=== PATIENT | female | born 1970 | race Caucasian/White ===

== ENCOUNTER 2017-01-31 20:00 | Emergency (ER) | payer OTHER ==
[~2017-01-31] VITALS: Ht 157.5 cm; Wt 65.5 kg
[2017-01-31] MEDS ORDERED: PERTUSS(ACELL),DIPH,TET VAC/PF 0.5 ML VIAL IM ONE (22:00)
[2017-01-31] MEDS ORDERED: AMOX TR/POT CLAV 500 MG/125 MG TABLET PO ONE (22:00)
[2017-01-31] MEDS ORDERED: POVIDONE-IODINE 10% 15 ML SOLUTION UD TP ONE (22:00)
[2017-01-31] MEDS ORDERED: ACETAMINOPHEN/CODEINE 300-30 MG TABLET PO ONE (22:00)
[2017-01-31 22:37] VITALS: BP 141/79
== END 2017-01-31 22:40 | disposition home or self-care (01) ==
LOC: EMS 20:03
DX: S51.851A Open bite of right forearm, initial encounter (principal); W54.0XXA Bitten by dog, initial encounter; Y93.01 Activity, walking, marching and hiking; Y92.096 Garden or yard of other non-institutional residence as the place of occurrence of the external cause; Y99.8 Other external cause status
CPT/HCPCS: 90471; 90715; 99284

== ENCOUNTER 2017-07-22 08:31 | Emergency (ER) | payer OTHER ==
[~2017-07-22] VITALS: Ht 157.5 cm; Wt 58.2 kg
[2017-07-22] MEDS ORDERED: KETOROLAC TROMETHAMINE 30 MG/ML VIAL IVP ONE (09:00)
[2017-07-22] MEDS ORDERED: DiphenhydrAMINE HCL 50 MG/ML VIAL IVP ONE (09:00)
[2017-07-22] MEDS ORDERED: METOCLOPRAMIDE HCL 5 MG/ML 2 ML VIAL IVP ONE (09:00)
[2017-07-22] MEDS ORDERED: SODIUM CHLORIDE 0.9% 1,000 ML IV ONE (09:00)
[2017-07-22 12:18] VITALS: BP 122/77
== END 2017-07-22 12:37 | disposition home or self-care (01) ==
LOC: EMS 08:32
DX: G43.909 Migraine, unspecified, not intractable, without status migrainosus (principal)
CPT/HCPCS: 81025; 96360; 96361; 96374; 96375; 99285; J1200; J1885; J2765; J7030